=== PATIENT | female | born 1995 | race Caucasian/White ===

== ENCOUNTER 2017-02-20 22:38 | Emergency (ER) | payer BC ==
[~2017-02-20] VITALS: Ht 157.5 cm; Wt 69.5 kg
[2017-02-20 22:41] VITALS: TEMP 36.8; Ht 157.5 cm; Wt 69.5 kg
[2017-02-20] MEDS ORDERED: BCPILLS PO (22:49)
[2017-02-20] MEDS ORDERED: IBUP-1050 PO (22:49)
--- NOTE | 2017-02-20 23:16 | EMERGENCY ROOM VISIT NOTE ---
History First contact with patient: 22:45 Chief Complaint: HEAD INJURY (MINOR) Stated Complaint: HEAD INJURY, DIZZINESS, NAUSEA,LOSS OF APPETITE History of Present Illness The patient is a 21 year old female who presents to the Emergency Room with complaints of a head injury. The patient states that she sustained a head injury yesterday morning. She reports that she was wrestling with her boyfriend when she fell, striking the back of her head on a door hinge. There was no loss of consciousness. The patient states that since the injury, she has had pain in the head, dizziness, nausea, and feeling "foggy." She has taken ibuprofen with some relief of the headache. She rates her discomfort a 7/ 10. She denies any syncope, numbness/weakness, blurred vision or slurred speech. Review of Systems A complete 10 point review of systems was reviewed with the patient with pertinent positives and negatives as per history of present illness. All else were negative. Social History Smoking Status: Never Smoker Current/Historical Medications Scheduled Control Pills ( Control Pills), 1 TAB PO DAILY Scheduled PRN Ibuprofen (Advil), 400 MG PO DAILY PRN for Pain or Fever Physical Exam Vital Signs Date Time Temp Pulse Resp B/P (MAP) Pulse Ox O2 Delivery O2 Flow Rate FiO2 02/21/17 00:43 67 18 121/79 98 02/20/17 22:41 36.8 73 18 128/90 98 Room Air Physical Exam VITALS: Vitals are noted on the nurse's note and reviewed by myself. Vital signs stable. GENERAL: This is a 21-year-old female, in no acute distress, well-developed well -nourished. SKIN: There is a small erythematous abrasion to the posterior aspect of the left scalp. HEAD: Normocephalic atraumatic. EARS: External auditory canals clear, tympanic membranes pearly ruiz without erythema or effusion bilaterally. No hemotympanum. EYES: Pupils equal round and reactive to light and accommodation. Conjunctivae without injection, sclerae without icterus. Extraocular movements intact. MOUTH: Mucous membranes moist. NECK: Supple without nuchal rigidity. Cervical spine is nontender. HEART: Regular rate and rhythm without murmurs gallops or rubs. LUNGS: Clear to auscultation bilaterally without wheezes, rales or rhonchi. MUSCULOSKELETAL: Normal range of motion throughout. Strength 5/5 throughout. NEURO: Patient was alert and oriented to person place and time. Normal sensation to light and sharp touch. Normal finger to nose testing. Normal rapid alternating movements. Negative Romberg and pronator drift. No focal neurological deficits. Medical Decision & Procedures ER Provider Diagnostic Interpretation: CT HEAD: No ICH, mass effect or edema. No skull fracture. Radiologist: James Mckeon MD ED Course The patient was evaluated as above. CT of the head was performed and read by statrad as above. Discharge instructions were reviewed with the patient. The patient verbalized understanding of my assessment and treatment plan and was discharged home in good condition. Medical Decision Differential diagnosis includes concussion, intracranial hemorrhage, skull fracture, among others. The patient is a 21-year-old female who presents today complaining of a head injury. Patient's symptoms are most consistent with a concussion. I discussed the benefits and risks of treating conservatively for a concussion versus CT scan to rule out other pathology and the patient prefers to have a CT scan performed. This was performed and showed no acute findings. Conservative measures were discussed with the patient and she was given information for the concussion clinic to follow-up with if she has no resolution of her symptoms. Otherwise, she may follow-up with [facility]. Based on the patient's presentation and work up, I feel the patient is stable for outpatient treatment. The patient was educated to return to the emergency department for any worsening of their current condition or new/concerning symptoms. She will follow up with [facility]. Head Trauma GCS Score: 15 Medication Reconcilliation Current Medication List: was personally reviewed by me Blood Pressure Screening Patient's blood pressure: Normal blood pressure Impression Primary Impression: Closed head injury Departure Information Dispostion Home / Self-Care Condition GOOD Referrals No Doctor, Assigned (PCP) Patient Instructions ED Head Injury Closed, My [facility] Additional Instructions You have been treated in the Emergency Department for a Closed Head Injury. CT Scan of your head/brain demonstrated no acute bleeding or other abnormalities. This does not completely rule out the risk for future damage to the brain. For pain control, you can use the following [id number] medicines (if >12 yo): - Regular strength (325mg/tab) Tylenol (acetaminophen) 2 tabs every 4-6 hours as needed. Do not exceed 12 tablets in a 24 hour period. Avoid taking more than 4 grams (4000 mg) of Tylenol per day. This includes any other sources of acetaminophen you may take on a regular basis. - Regular strength (200 mg/tab) Advil (ibuprofen) 1-2 tabs every 4-6 hours as needed. Do not exceed a dose of 3200 mg per day. You should relax in a quiet, dark place for the rest of the day. Avoid any possible triggers including: cigarette smoke, caffeine, nicotine, chocolate, wine, beer, loud noises or music, or bright lights. You should schedule a follow-up appointment in 2-3 days with your Primary Care Provider or established Neurologist for further evaluation and treatment of your Headache. You should NOT return to athletic play until reevaluated by your [employer]. You should fully comply with their standard protocol regarding head injuries. Your [employer] Micro[employer]ist OR Primary Care Provider will have the final say in your return to athletic play. This timeframe should be AT LEAST 1 week AFTER the date of last symptoms experienced! This is ESSENTIAL to allow for adequate brain healing time and for reduced risk of re-injury. You may follow-up with the concussion clinic if you have persistent symptoms. They are located at [address] [place] [address], [address]. You may call them to schedule an appointment at [phone]. They are open Tuesday to Tuesday from 8: 30 AM to 5:00 PM. Return to the Emergency Department if your current symptoms worsen despite treatment course outlined above, or if you develop any of the following symptoms : intractable pain despite aforementioned treatment course, visual disturbances , loss of vision, unilateral weakness or facial drooping, slurring of speech, loss of coordination, or loss of consciousness. Problem Qualifiers Primary Impression: Closed head injury Encounter type: initial encounter Qualified Codes: S09.90XA - Unspecified injury of head, initial encounter
[2017-02-21 00:43] VITALS: BP 121/79; PULSE 67; O2SAT 98
--- NOTE | 2017-02-21 06:55 | DIAGNOSTIC IMAGING REPORT ---
HEAD WITHOUT CONTRAST (CT) CLINICAL HISTORY: 21 years-old Female presenting with head injury, nausea, headache. TECHNIQUE: Multidetector CT imaging of the head was performed without the use of intravenous contrast. IV contrast: None. A dose lowering technique was used consistent with the principles of ALARA (as low as reasonably achievable). COMPARISON: None. CT DOSE (mGy.cm): The estimated cumulative dose is 537.48 mGy.cm. FINDINGS: Pedigree Tracer topogram: Unremarkable. Minimal irregularity of the cutis overlying the left occiput near the vertex, likely laceration. No underlying osseous injury. Ventricles and sulci normal in size. Brain parenchyma normal in appearance with preserved ruiz-white differentiation. No mass effect or midline shift. No hemorrhage or acute territorial infarct. No extra-axial fluid collection. Paranasal sinuses and mastoid air cells clear. Calvarium intact. IMPRESSION: 1. No acute intracranial pathology. Electronically signed by: Jorge Pierre M.D. 02/21/2017 6:54 AM Dictated Date/Time: 02/21/2017 6:51 AM
== END 2017-02-21 00:44 | disposition home or self-care (01) ==
LOC: C.EDB 22:41 → C.EDA 02-21 00:44
DX: S09.90XA Unspecified injury of head, initial encounter (principal); S00.01XA Abrasion of scalp, initial encounter; W18.30XA Fall on same level, unspecified, initial encounter; Y93.83 Activity, rough housing and horseplay; Z79.3 Long term (current) use of hormonal contraceptives